=== PATIENT | male | born 1985 | race Caucasian/White ===

== ENCOUNTER 2019-11-21 14:48 | Emergency (ER) | payer OTHER ==
[~2019-11-21] VITALS: Ht 193 cm; Wt 136.1 kg
[2019-11-21 14:53] VITALS: BP_SYST 164
--- NOTE | 2019-11-21 15:00 | NUR ---
pt arrives from home after sustaining a lac over the forehead. No other c/o at the moment.
--- NOTE | 2019-11-21 15:38 | NUR ---
JESSICA Hernandez [employer]EL[employer] HELPER at bedside examining patient.
--- NOTE | 2019-11-21 15:40 | NUR ---
Dermabond applied to the forehead lac. Pt tolerated well
[2019-11-21] MEDS ORDERED: DIPH-TET-PERTUS Vaccine 0.5 ML VIAL (ADACEL) I.M. ONE (15:45)
[2019-11-21] MEDS ORDERED: IBUPROFEN 600 MG TABLET PO ONE (15:45)
--- NOTE | 2019-11-21 15:58 | NUR ---
Patient given written and verbal discharge instructions and verbalizes understanding. ER MD discussed with patient the results and treatment provided. Patient in stable condition. ID arm band removed. Rx of Motrin 600mg given. Patient educated on pain management and to follow up with PMD. Pain Scale 3/10.Opportunity for questions provided and answered. Medication side effect fact sheet provided.
== END 2019-11-21 15:56 | disposition home or self-care (01) ==
LOC: SED 14:48
DX: S01.81XA Laceration without foreign body of other part of head, initial encounter (principal); W22.8XXA Striking against or struck by other objects, initial encounter; Y93.89 Activity, other specified; Y99.8 Other external cause status; Y92.89 Other specified places as the place of occurrence of the external cause
CPT/HCPCS: 90715; 99283; 99284